=== PATIENT | male | born 1995 | race Caucasian/White ===

== ENCOUNTER 2021-03-24 09:12 | Outpatient (REF) | payer OTHER, SELFPAY ==
[2021-03-24 10:43] LABS: COVID-19 Test Negative (Negative)
== END 2021-03-24 09:13 | disposition home or self-care (01) ==
LOC: HO.LAB 09:12
PROVIDERS: Visit Provider Internal Medicine
DX: Z20.822 Contact with and (suspected) exposure to COVID-19 (principal)
CPT/HCPCS: 36415; 87635; C9803

== ENCOUNTER 2022-03-26 09:28 | Emergency (ER) | payer SELFPAY ==
--- NOTE | ~2022-03-26 | CT_ITS ---
EXAMINATION: CT chest wo IV con. CLINICAL INFORMATION: Cough chest pain COMPARISON: No prior CT available for comparison. TECHNIQUE: Multidetector volumetric CT imaging of the chest was done. Axial MIP volume rendering provided. Sagittal and coronal reformatted images were obtained. This CT examination was performed using dose optimization techniques as appropriate, variously including the following: *Automated exposure control *Adjustment of mA and/or kV according to patient size (this includes techniques or standardized protocols for targeted exams where dose is matched to indication/reason for exam; i.e. extremities or head) *Use of iterative reconstruction technique CONTRAST: Noncontrasted study. DLP: 305 mGy-cm FINDINGS: CASING INSPECTOR: LINES/TUBES: Set And Exhibit Designer reviewed, no lines. LUNGS: Lung parenchyma: No evidence of significant interstitial disease. Lung nodules/masses: There are no significant lung nodules. AIRWAYS: Trachea and bronchi are normal. PLEURA: No pleural effusion or pneumothorax. MEDIASTINUM AND PETER: No mediastinal, hilar or axillary lymphadenopathy. No mediastinal mass. VESSELS: HEART AND PERICARDIUM: Thoracic aorta is normal in size. Heart is normal in size. No pericardial effusion. There are no coronary calcifications. Pulmonary arteries are normal in size. LOWER NECK, AXILLA: The visualized thyroid gland is unremarkable. No axillary mass or adenopathy. VISUALIZED ABDOMEN: Unremarkable CHEST WALL AND BONES: No chest wall mass. The visualized bony thorax is within normal limits. CT/CT chest wo IV con IMPRESSION: Normal CT scan of the chest.
[2022-03-26 09:42] VITALS: BP 152/98; PULSE 91; RESP 19; TEMP 36.6; O2SAT 98; BMI 30.7
--- NOTE | 2022-03-26 09:45 | ECG_ITS ---
Test Reason : palpitations Blood Pressure : / mmHG Vent. Rate : 084 BPM Atrial Rate : 084 BPM P-R Int : 154 ms QRS Dur : 096 ms QT Int : 356 ms P-R-T Axes : 053 -04 034 degrees QTc Int : 420 ms Normal sinus rhythm with sinus arrhythmia Possible Left atrial enlargement Borderline ECG No previous ECGs available Referred By: Generic ED Physician Electronically Signed By:AUGUSTO BARRETT MD
--- NOTE | 2022-03-26 10:03 | ED_ITS ---
HPI - General Adult General Chief complaint: General Medical Stated complaint: multi complaints weak Time Seen by Provider: 03/26/22 10:03 Source: patient Mode of arrival: ambulatory Limitations: no limitations History of Present Illness HPI narrative: 26-year-old male came in for evaluation of generalized body ache, palpitation, chest pain with coughing, coughing with clear phlegm. Patient recently was diagnosed with sinusitis finish a course of Augmentin, then patient been having this lingering symptoms of body ache and coughing with chest pain and feels palpitation. Related Data Allergies Allergy/AdvReac Type Severity Reaction Status Date / Time No Known Allergies Allergy Unverified 12/11/19 18:24 Review of Systems Review of Systems: All other systems are reviewed and are negative Constitutional: Reports as per HPI and Reports no additional constitutional complaints Eyes: Reports as per HPI and Reports no additional eye complaints Reports system reviewed and no additional complaints, except as documented Cardiovascular: Reports as per HPI and Reports no additional cardiovascular complaints Respiratory: Reports as per HPI and Reports no additional respiratory complaints Gastrointestinal: Reports as per HPI and Reports no additional gastrointestinal complaints Genitourinary: Reports no additional female genitourinary complaints Musculoskeletal: Reports no additional musculoskeletal complaints Skin/Breast: Reports system reviewed and no additional complaints, except as docu Psychiatric: Reports no additional psychiatric complaints Endocrine: Reports no additional endocrine complaints Hematologic/Lymphatic: Reports no additional hematologic/lymphatic complaints Allergic/Immunologic: Reports no additional allergic/immunologic complaints Reports system reviewed and no additional complaints, except as documented and Reports Abnormal speech present [facility] Social History Social History Advance Directives: No Advance Directives Information Provided: No Physical Exam ED Vital Signs: Vital Signs - 24 hr 03/26/22 09:42 03/26/22 12:00 Temperature 98 F Pulse Rate 91 76 Respiratory Rate 19 18 Blood Pressure 152/98 H 130/74 Pulse Oximetry 98 98 Oxygen Delivery Method Room Air Room Air BMI result Body Mass Index 30.7 Vital signs have been reviewed as appeared to be correct. Blood pressure normal. Heart rate normal. Respiration rate normal. Temperature normal. Oxygen saturation normal. Appearance: Alert. Oriented X3. No acute distress. Head: Normal external exam. Normocephalic. Atraumatic. No Castro signs noted. No raccoon eyes noted Eyes: PERRLA. EOMI. Conjunctiva and sclera normal. Eyelids normal. ENT: TM's Normal. Pharynx normal. Uvula midline. Moist mucous membranes. No trismus noted. No drooling noted. No muffled voice noted. Neck: Normal inspection. Neck supple. FROM. No adenopathy. Thyroid Normal. No meningeal signs. No neck mass noted. CVS: Normal heart rate and rhythm. Heart sound normal. No murmurs noted. Pulses normal throughout. Respiratory: No respiratory distress. Painless inspiration. Breath sounds normal. No wheezes/rales/rhonchi noted. Chest nontender. No accessory muscle usage noted or decreased air movement noted. Abdomen: Soft and nontender. Bowel sounds normal in all 4 quadrants. No distention noted. No organomegaly noted. No visible injury noted. Back: No CVA tenderness. Full range of motion noted. Skin: Skin warm and dry. Normal skin color. Normal skin turgor. No rashes/lesions/lacerations noted. Extremities: No lower extremity edema. Extremities exhibit normal range of motion. Extremities nontender. Neuro: Oriented X 3. Cranial nerve exam: II-XII are grossly intact No motor deficit. No sensory deficit. Reflexes normal. Course Course Course Narrative: 26-year-old male came in for evaluation of chest pain and palpitation after having sinusitis and finish a course of Augmentin. Patient has unremarkable workup today with stable vital signs will reassure the patient and discharge. Medical Decision Making Differential Diagnosis Differential Diagnoses: The differential diagnosis associated with the presentation includes (Chest wall pain, pneumonia, upper respiratory infection, ACS, pericarditis.) Lab Data MDM Lab Attestation statement: I reviewed the patient's lab results. Result Diagrams: 03/26/22 11:30 03/26/22 11:30 Labs: Lab Results 03/26/22 03/26/22 03/26/22 Range/Units 09:52 11:30 11:30 WBC 9.2 (4.8-10.8) X10*3/uL RBC 4.99 (4.60-5.80) X10*6/uL Hgb 15.1 (14.0-18.0) g/dl Hct 44.0 (42.0-52.0) % MCV 88.2 (80.0-98.0) fL MCH 30.3 (27.0-33.0) pg MCHC 34.3 (31.0-36.0) g/dl RDW 12.2 (11.0-16.0) % Plt Count 345 (160-400) X10*3/uL MPV 10.0 (9.4-12.4) fL Immature Gran % (Auto) 0.3 (0.0-0.4) % Neut % (Auto) 60.0 (45-73) % Lymph % (Auto) 30.6 (20-40) % Clay % (Auto) 7.1 (2-11) % Eos % (Auto) 1.6 (0-4) % Baso % (Auto) 0.4 (0-2) % Lymph # (Auto) 2.8 (1.2-4.9) X10*3/uL Clay # (Auto) 0.7 (0.1-1.2) X10*3/uL Eos # (Auto) 0.2 (0.0-0.4) X10*3/uL Baso # (Auto) 0.0 (0.0-0.2) X10*3/uL Abs Immat Gran (auto) 0.03 (0.00-0.03) X10*3/uL Absolute Neuts (auto) 5.5 (2.0-8.3) x10*3/uL Absolute Nucleated RBC 0.000 (0.0-0.012) X10*3/uL Nucleated RBC % (auto) 0.0 (0.0-0.2) /100WBC Sodium 141 (135-145) mmol/L Potassium 4.8 (3.3-5.1) mmol/L Chloride 107 (96-108) mmol/L Carbon Dioxide 28 (22-29) mmol/L Anion Gap 11 L (12-20) BUN 13 (9-16) mg/dL Creatinine 1.17 (0.5-1.4) mg/dL Estim Creat Clear Calc 113.7 Estimated GFR > 60 Random Glucose 95 (60-115) mg/dL Calcium 10.0 (8.4-10.2) mg/dL Total Bilirubin 0.6 (0.0-1.0) mg/dL Direct Bilirubin < 0.2 (0.0-0.5) mg/dL AST 24 (5-37) U/L ALT 33 (0-40) U/L Alkaline Phosphatase 91 (39-117) U/L Troponin I High Sens (<3.5-35.0) ng/L Total Protein 7.8 (6.5-8.0) g/dL Albumin 4.7 (3.5-5.0) g/dL Lipase 12 (8-78) U/L Influenza Type A (PCR) NEGATIVE (Negative) Influenza Type B (PCR) NEGATIVE (Negative) RSV RNA Qual (PCR) NEGATIVE (Negative) SARS-CoV-2 RNA (RT-PCR) NEGATIVE (Negative) 03/26/22 Range/Units 11:30 WBC (4.8-10.8) X10*3/uL RBC (4.60-5.80) X10*6/uL Hgb (14.0-18.0) g/dl Hct (42.0-52.0) % MCV (80.0-98.0) fL MCH (27.0-33.0) pg MCHC (31.0-36.0) g/dl RDW (11.0-16.0) % Plt Count (160-400) X10*3/uL MPV (9.4-12.4) fL Immature Gran % (Auto) (0.0-0.4) % Neut % (Auto) (45-73) % Lymph % (Auto) (20-40) % Clay % (Auto) (2-11) % Eos % (Auto) (0-4) % Baso % (Auto) (0-2) % Lymph # (Auto) (1.2-4.9) X10*3/uL Clay # (Auto) (0.1-1.2) X10*3/uL Eos # (Auto) (0.0-0.4) X10*3/uL Baso # (Auto) (0.0-0.2) X10*3/uL Abs Immat Gran (auto) (0.00-0.03) X10*3/uL Absolute Neuts (auto) (2.0-8.3) x10*3/uL Absolute Nucleated RBC (0.0-0.012) X10*3/uL Nucleated RBC % (auto) (0.0-0.2) /100WBC Sodium (135-145) mmol/L Potassium (3.3-5.1) mmol/L Chloride (96-108) mmol/L Carbon Dioxide (22-29) mmol/L Anion Gap (12-20) BUN (9-16) mg/dL Creatinine (0.5-1.4) mg/dL Estim Creat Clear Calc Estimated GFR Random Glucose (60-115) mg/dL Calcium (8.4-10.2) mg/dL Total Bilirubin (0.0-1.0) mg/dL Direct Bilirubin (0.0-0.5) mg/dL AST (5-37) U/L ALT (0-40) U/L Alkaline Phosphatase (39-117) U/L Troponin I High Sens < 3.5 (<3.5-35.0) ng/L Total Protein (6.5-8.0) g/dL Albumin (3.5-5.0) g/dL Lipase (8-78) U/L Influenza Type A (PCR) (Negative) Influenza Type B (PCR) (Negative) RSV RNA Qual (PCR) (Negative) SARS-CoV-2 RNA (RT-PCR) (Negative) Independent Interpretation I performed an independent interpretation of an: CT Scan (Chest: No acute intrathoracic pathology.) Radiology Impression Discussion of test interpretation with radiology: I have reviewed the radiologist's reading. Discharge Plan Discharge Clinical Impression: Chest pain, non-cardiac Patient Disposition: Home, Self-Care Instructions: Noncardiac Chest Pain (ED) Stand Alone Forms: Work/School Release
[2022-03-26 10:50] LABS: Influenza A PCR NEGATIVE (Negative); Influenza B PCR NEGATIVE (Negative); Resp Syncy Virus RNA Qual PCR NEGATIVE (Negative); SARS COV2 PCR INHOUSE NEGATIVE (Negative)
[2022-03-26 11:34] LABS: MANUAL DIFF FLAG NO
[2022-03-26 11:38] LABS: Basophils Percent Auto 0.4 % (0-2); Eosinophils Absolute Auto 0.2 X10*3/uL (0.0-0.4); Eosinophils Percent Auto 1.6 % (0-4); Hemoglobin 15.1 g/dl (14.0-18.0); Imm Gran Abs Auto 0.03 X10*3/uL (0.00-0.03); Imm Gran Pct Auto 0.3 % (0.0-0.4); Lymphocytes Absolute Auto 2.8 X10*3/uL (1.2-4.9); Lymphocytes Percent Auto 30.6 % (20-40); Mean Corpuscular HGB Conc 34.3 g/dl (31.0-36.0); Mean Corpuscular Hemoglobin 30.3 pg (27.0-33.0); Mean Corpuscular Volume 88.2 fL (80.0-98.0); Monocytes Absolute Auto 0.7 X10*3/uL (0.1-1.2); Monocytes Percent Auto 7.1 % (2-11); Neutrophils Absolute Auto 5.5 x10*3/uL (2.0-8.3); Platelet Count 345 X10*3/uL (160-400); Red Blood Count 4.99 X10*6/uL (4.60-5.80); Red Cell Distribution Width 12.2 % (11.0-16.0); White Blood Count 9.2 X10*3/uL (4.8-10.8)
[2022-03-26 12:00] VITALS: BP 130/74; PULSE 76; RESP 18; O2SAT 98
[2022-03-26 12:01] LABS: Alanine Aminotransferase 33 U/L (0-40); Albumin Level 4.7 g/dL (3.5-5.0); Alkaline Phosphatase 91 U/L (39-117); Anion Gap 11 (12-20); Aspartate Amino Transferase 24 U/L (5-37); Bilirubin Direct < 0.2 mg/dL (0.0-0.5); Bilirubin Total 0.6 mg/dL (0.0-1.0); Blood Urea Nitrogen 13 mg/dL (9-16); Carbon Dioxide 28 mmol/L (22-29); Chloride 107 mmol/L (96-108); Creatinine Clr Calc Pharmacy 113.7; Estimated Glomerular Filt Rate > 60; Glucose Random 95 mg/dL (60-115); Lipase 12 U/L (8-78); Potassium 4.8 mmol/L (3.3-5.1); Sodium 141 mmol/L (135-145); Total Protein 7.8 g/dL (6.5-8.0)
[2022-03-26 12:03] LABS: Troponin-I High Sensitivity < 3.5 ng/L (<3.5-35.0)
--- NOTE | 2022-03-26 12:32 | PC.NURSE ---
pt a&ox3, vss, pt denies any chest pain/palpitations at this, reports that it may have been increased anxiety, CT results pending. no new orders at this time.
== END 2022-03-26 14:30 | disposition home or self-care (01) ==
PROVIDERS: Emergency Provider Emergency Medicine
DX: R07.89 Other chest pain (principal); M79.10 Myalgia, unspecified site; R00.2 Palpitations; R05.9 Cough, unspecified; Z20.822 Contact with and (suspected) exposure to COVID-19; Z79.899 Other long term (current) drug therapy
CPT/HCPCS: 0241U; 36415; 71250; 80048; 80076; 83690; 84484; 85025; 93005; 99284

== ENCOUNTER 2022-06-19 17:33 | Emergency (ER) | payer SELFPAY ==
[2022-06-19 17:43] VITALS: BP 146/86; PULSE 80; RESP 18; TEMP 36.7; O2SAT 98; BMI 30.7
--- NOTE | 2022-06-19 17:48 | ED.GENADULT ---
HPI - General Adult General Chief complaint: General Medical <KAYLEEN Betts - Last Filed: 07/02/22 11:50> Stated complaint: joints and muscle pain <KAYLEEN Betts - Last Filed: 07/02/22 11:50> Time Seen by Provider: 06/19/22 19:38 <KAYLEEN Betts - Last Filed: 07/02/22 11:50> Source: patient <Wally Hagan MD - Last Filed: 06/19/22 20:09> Mode of arrival: ambulatory <Wally Hagan MD - Last Filed: 06/19/22 20:09> Limitations: no limitations <Wally Hagan MD - Last Filed: 06/19/22 20:09> History of Present Illness HPI narrative: 26-year-old male with no major medical problems presents with 4-5 months of myalgias and arthralgias. The symptoms are intermittent. They are moderate to severe. There is no clear relieving or exacerbating features. There is no clear indication why this is occurring. He denies any joint swelling but sometimes he notices warmth. Denies any rashes, insect bites. Prior to this he had never had anything before. He has had no prior treatment. Additional symptoms have included feeling like he has difficulty grasping things from time to time. He has had no recent weight loss or weight gain. Denies any night sweats. <Wally Hagan MD - Last Filed: 06/19/22 20:09> Related Data Home medications: Previous Rx's Medication Instructions Recorded meloxicam 15 mg tablet 15 mg PO DAILY #30 tabs 06/19/22 <KAYLEEN Betts - Last Filed: 07/02/22 11:50> Allergies/adverse reactions: Allergies Allergy/AdvReac Type Severity Reaction Status Date / Time No Known Allergies Allergy Unverified 12/11/19 18:24 <KAYLEEN Betts - Last Filed: 07/02/22 11:50> [facility] Social History Social History: Social History Advance Directives: No Advance Directives Information Provided: No <KAYLEEN Betts Last Filed: 07/02/22 11:50> Physical Exam ED Vital Signs: Vital Signs - 24 hr 06/19/22 17:43 Temperature 98.1 F Pulse Rate 80 Respiratory Rate 18 Blood Pressure 146/86 H Pulse Oximetry 98 Oxygen Delivery Method Room Air BMI result Body Mass Index 30.7 <KAYLEEN Betts - Last Filed: 07/02/22 11:50> Vital Signs - 24 hr 06/19/22 17:43 Temperature 98.1 F Pulse Rate 80 Respiratory Rate 18 Blood Pressure 146/86 H Pulse Oximetry 98 Oxygen Delivery Method Room Air BMI result Body Mass Index 30.7 <Wally Hagan MD - Last Filed: 06/19/22 20:09> GEN: Well developed, no acute distress, alert, oriented HEENT: Normocephalic, atraumatic, normal external ears, nose appears normal Eyes: Normal to appearance Neck: Supple, no lymphadenopathy Respiratory: Talks in complete sentences, no respiratory distress Extremities: No clubbing cyanosis or edema, no joint inflammation, no tenderness Neurologic: No focal neurologic deficits, cranial nerves 2-12 intact, gait normal Skin: No rash <Wally Hagan MD - Last Filed: 06/19/22 20:09> Course Course Course Narrative: RME: 26 yolld Male presents to the ED for fatigue, muscle pain, and feels like his lymphnodes all over feels swollen. Physical exam negative for lymphadenopathy on neck/axillary/clavicle/abdomen/HENT. <KAYLEEN Betts - Last Filed: 07/02/22 11:50> Reevaluation(s) Reevaluation #1: Laboratory results are unremarkable. This was discussed with the patient. This possible patient has an underlying rheumatologic condition such as rheumatoid arthritis, lupus, reactive arthritis, arthropod based illness I have recommended following up with a hi lift operator.. <Wally Hagan MD - Last Filed: 06/19/22 20:09> Time: 20:06 <Wally Hagan MD - Last Filed: 06/19/22 20:09> Medical Decision Making Medical Decision Making MDM Narrative: 26-year-old male presents with polyarthralgia. Etiology is unclear. Patient will require require more extensive workup from hi lift operator. Broad differential diagnosis for arthralgias and myalgias has been considered. In the meantime, I will recommend NSAID treatment for period of 1 month until he is able to follow up with another provider. <Wally Hagan MD - Last Filed: 06/19/22 20:09> Differential Diagnosis Differential Diagnoses: The differential diagnosis associated with the presentation includes (Rheumatoid arthritis, lupus, reactive arthritis, arthropod based illness, psoriatic arthritis, HLA B27 related illness) <Wally Hagan MD - Last Filed: 06/19/22 20:09> Lab Data MDM Lab Attestation statement: I reviewed the patient's lab results. <Wally Hagan MD - Last Filed: 06/19/22 20:09> Result Diagrams: 06/19/22 17:58 06/19/22 17:58 <KAYLEEN Betts - Last Filed: 07/02/22 11:50> Labs: Lab Results 06/19/22 06/19/22 06/19/22 Range/Units 17:58 17:58 17:58 WBC 6.2 (4.8-10.8) X10*3/uL RBC 4.94 (4.60-5.80) X10*6/uL Hgb 15.1 (14.0-18.0) g/dl Hct 44.1 (42.0-52.0) % MCV 89.3 (80.0-98.0) fL MCH 30.6 (27.0-33.0) pg MCHC 34.2 (31.0-36.0) g/dl RDW 12.2 (11.0-16.0) % Plt Count 296 (160-400) X10*3/uL MPV 10.1 (9.4-12.4) fL Immature Gran % (Auto) 0.3 (0.0-0.4) % Neut % (Auto) 53.9 (45-73) % Lymph % (Auto) 36.8 (20-40) % Mcintosh % (Auto) 6.6 (2-11) % Eos % (Auto) 1.9 (0-4) % Baso % (Auto) 0.5 (0-2) % Lymph # (Auto) 2.3 (1.2-4.9) X10*3/uL Mcintosh # (Auto) 0.4 (0.1-1.2) X10*3/uL Eos # (Auto) 0.1 (0.0-0.4) X10*3/uL Baso # (Auto) 0.0 (0.0-0.2) X10*3/uL Abs Immat Gran (auto) 0.02 (0.00-0.03) X10*3/uL Absolute Neuts (auto) 3.3 (2.0-8.3) x10*3/uL Absolute Nucleated RBC 0.000 (0.0-0.012) X10*3/uL Nucleated RBC % (auto) 0.0 (0.0-0.2) /100WBC Sodium 139 (135-145) mmol/L Potassium 4.1 (3.3-5.1) mmol/L Chloride 107 (96-108) mmol/L Carbon Dioxide 26 (22-29) mmol/L Anion Gap 10 L (12-20) BUN 12 (9-16) mg/dL Creatinine 0.98 (0.5-1.4) mg/dL Estim Creat Clear Calc 139.8 Estimated GFR > 60 Random Glucose 105 (60-115) mg/dL Calcium 9.5 (8.4-10.2) mg/dL Total Bilirubin 0.6 (0.0-1.0) mg/dL AST 31 (5-37) U/L ALT 48 H (0-40) U/L Alkaline Phosphatase 89 (39-117) U/L Total Creatine Kinase 169 (38-174) U/L Total Protein 7.1 (6.5-8.0) g/dL Albumin 4.4 (3.5-5.0) g/dL Influenza Type A (PCR) NEGATIVE (Negative) Influenza Type B (PCR) NEGATIVE (Negative) RSV RNA Qual (PCR) NEGATIVE (Negative) SARS-CoV-2 RNA (RT-PCR) NEGATIVE (Negative) <KAYLEEN Betts - Last Filed: 07/02/22 11:50> Lab Results 06/19/22 06/19/22 06/19/22 Range/Units 17:58 17:58 17:58 WBC 6.2 (4.8-10.8) X10*3/uL RBC 4.94 (4.60-5.80) X10*6/uL Hgb 15.1 (14.0-18.0) g/dl Hct 44.1 (42.0-52.0) % MCV 89.3 (80.0-98.0) fL MCH 30.6 (27.0-33.0) pg MCHC 34.2 (31.0-36.0) g/dl RDW 12.2 (11.0-16.0) % Plt Count 296 (160-400) X10*3/uL MPV 10.1 (9.4-12.4) fL Immature Gran % (Auto) 0.3 (0.0-0.4) % Neut % (Auto) 53.9 (45-73) % Lymph % (Auto) 36.8 (20-40) % Mcintosh % (Auto) 6.6 (2-11) % Eos % (Auto) 1.9 (0-4) % Baso % (Auto) 0.5 (0-2) % Lymph # (Auto) 2.3 (1.2-4.9) X10*3/uL Mcintosh # (Auto) 0.4 (0.1-1.2) X10*3/uL Eos # (Auto) 0.1 (0.0-0.4) X10*3/uL Baso # (Auto) 0.0 (0.0-0.2) X10*3/uL Abs Immat Gran (auto) 0.02 (0.00-0.03) X10*3/uL Absolute Neuts (auto) 3.3 (2.0-8.3) x10*3/uL Absolute Nucleated RBC 0.000 (0.0-0.012) X10*3/uL Nucleated RBC % (auto) 0.0 (0.0-0.2) /100WBC Sodium 139 (135-145) mmol/L Potassium 4.1 (3.3-5.1) mmol/L Chloride 107 (96-108) mmol/L Carbon Dioxide 26 (22-29) mmol/L Anion Gap 10 L (12-20) BUN 12 (9-16) mg/dL Creatinine 0.98 (0.5-1.4) mg/dL Estim Creat Clear Calc 139.8 Estimated GFR > 60 Random Glucose 105 (60-115) mg/dL Calcium 9.5 (8.4-10.2) mg/dL Total Bilirubin 0.6 (0.0-1.0) mg/dL AST 31 (5-37) U/L ALT 48 H (0-40) U/L Alkaline Phosphatase 89 (39-117) U/L Total Creatine Kinase 169 (38-174) U/L Total Protein 7.1 (6.5-8.0) g/dL Albumin 4.4 (3.5-5.0) g/dL Influenza Type A (PCR) NEGATIVE (Negative) Influenza Type B (PCR) NEGATIVE (Negative) RSV RNA Qual (PCR) NEGATIVE (Negative) SARS-CoV-2 RNA (RT-PCR) NEGATIVE (Negative) <Wally Hagan MD - Last Filed: 06/19/22 20:09> Prescription Management I considered prescription management with: Pain Medication <Wally Hagan MD - Last Filed: 06/19/22 20:09> Discharge Plan Discharge Clinical Impression: Polyarthralgia <KAYLEEN Betts - Last Filed: 07/02/22 11:50> Patient Disposition: Home, Self-Care <KAYLEEN Betts - Last Filed: 07/02/22 11:50> Instructions: Arthralgia (ED) <KAYLEEN Betts - Last Filed: 07/02/22 11:50> Prescriptions: New meloxicam 15 mg tablet 15 mg PO DAILY Qty: 30 0RF <KAYLEEN Betts - Last Filed: 07/02/22 11:50> Referrals: [facility] [place] [facility] [Provider Group] [facility] [place] [facility] [Provider Group] <KAYLEEN Betts - Last Filed: 07/02/22 11:50> Interventions: ED Discharge Assessment Last Done: 06/19/22 20:14 <KAYLEEN Betts - Last Filed: 07/02/22 11:50> Discharge Date/Time: 06/19/22 20:16 <KAYLEEN Betts - Last Filed: 07/02/22 11:50>
[2022-06-19 18:05] LABS: MANUAL DIFF FLAG NO
[2022-06-19 18:12] LABS: Basophils Percent Auto 0.5 % (0-2); Eosinophils Absolute Auto 0.1 X10*3/uL (0.0-0.4); Eosinophils Percent Auto 1.9 % (0-4); Hematocrit 44.1 % (42.0-52.0); Hemoglobin 15.1 g/dl (14.0-18.0); Imm Gran Abs Auto 0.02 X10*3/uL (0.00-0.03); Imm Gran Pct Auto 0.3 % (0.0-0.4); Lymphocytes Absolute Auto 2.3 X10*3/uL (1.2-4.9); Lymphocytes Percent Auto 36.8 % (20-40); Mean Corpuscular HGB Conc 34.2 g/dl (31.0-36.0); Mean Corpuscular Hemoglobin 30.6 pg (27.0-33.0); Mean Corpuscular Volume 89.3 fL (80.0-98.0); Mean Platelet Volume 10.1 fL (9.4-12.4); Monocytes Absolute Auto 0.4 X10*3/uL (0.1-1.2); Monocytes Percent Auto 6.6 % (2-11); Neutrophils Absolute Auto 3.3 x10*3/uL (2.0-8.3); Neutrophils Percent Auto 53.9 % (45-73); Platelet Count 296 X10*3/uL (160-400); Red Blood Count 4.94 X10*6/uL (4.60-5.80); Red Cell Distribution Width 12.2 % (11.0-16.0); White Blood Count 6.2 X10*3/uL (4.8-10.8)
[2022-06-19 18:24] LABS: Alanine Aminotransferase 48 U/L (0-40); Albumin Level 4.4 g/dL (3.5-5.0); Alkaline Phosphatase 89 U/L (39-117); Anion Gap 10 (12-20); Aspartate Amino Transferase 31 U/L (5-37); Bilirubin Total 0.6 mg/dL (0.0-1.0); Blood Urea Nitrogen 12 mg/dL (9-16); Calcium 9.5 mg/dL (8.4-10.2); Carbon Dioxide 26 mmol/L (22-29); Chloride 107 mmol/L (96-108); Creatinine Clr Calc Pharmacy 139.8; Estimated Glomerular Filt Rate > 60; Glucose Random 105 mg/dL (60-115); Potassium 4.1 mmol/L (3.3-5.1); Sodium 139 mmol/L (135-145); Total Protein 7.1 g/dL (6.5-8.0)
[2022-06-19 18:47] LABS: Influenza A PCR NEGATIVE (Negative); Influenza B PCR NEGATIVE (Negative); Resp Syncy Virus RNA Qual PCR NEGATIVE (Negative); SARS COV2 PCR INHOUSE NEGATIVE (Negative)
== END 2022-06-19 20:16 | disposition home or self-care (01) ==
PROVIDERS: Physician Assistant; Emergency Provider Emergency Medicine
DX: M25.579 Pain in unspecified ankle and joints of unspecified foot (principal); M79.10 Myalgia, unspecified site; R53.83 Other fatigue; Z20.822 Contact with and (suspected) exposure to COVID-19; Z20.828 Contact with and (suspected) exposure to other viral communicable diseases; Z79.899 Other long term (current) drug therapy
CPT/HCPCS: 0241U; 80053; 82550; 85025; 99282; 99283